=== PATIENT | male | born 1995 | race Two or more races ===

== ENCOUNTER 2025-10-07 09:34 | Emergency (ER) | payer OTHER ==
[~2025-10-07] VITALS: Ht 172.7 cm; Wt 95.3 kg
[2025-10-07] MEDS ORDERED: TRAMADOL HCL 50 MG TABLET PO ONE (10:45)
[2025-10-07] MEDS ORDERED: NORFLEX100MG PO (12:09)
== END 2025-10-07 12:17 | disposition home or self-care (01) ==
LOC: ER 09:35
DX: G89.11 Acute pain due to trauma (principal); M25.512 Pain in left shoulder